=== PATIENT | female | born 1995 | race Caucasian/White ===

== ENCOUNTER 2017-01-27 10:47 | Emergency (ER) | payer BC, OTHER ==
[2017-01-27 10:59] VITALS: BP 106/60
--- NOTE | 2017-01-27 11:30 | UC ---
Throat Pain/Nasal Robert HPI - HPI Summary HPI Summary: 21 year old with sinus pressure, nasal congestion, cough, fatigue that has been present for 3 days and her fiance and son are sick with fevers and fiance with sinus infection and prescribed antibiotics . She has had some rib pain from coughing in the upper ribs / chest. She mentioned this CP to the nurse and EKG done and reveals no acute concerns. No risk factors for DVT or PE at this time. - History of Current Complaint Chief Complaint: UCRespiratory Stated Complaint: RESPIRATORY COMPLAINT Time Seen by Provider: 01/27/17 11:01 Hx Obtained From: Patient Hx Last Menstrual Period: 01/26/17 ?: No Onset/Duration: Gradual Onset Severity: Moderate Cough: Productive Associated Signs & Symptoms: Positive: Sinus Discomfort, Nasal Discharge - Allergies/Home Medications Allergies/Adverse Reactions: Allergies Allergy/AdvReac Type Severity Reaction Status Date / Time Amoxicillin Allergy Intermediate Rash Verified 01/27/17 10:59 Azithromycin [From Zithromax] AdvReac GI distress Verified 01/27/17 10:59 Home Medications: Home Medications Multiple Vitamin [Multi Vitamin] 1 tab PO DAILY 01/27/17 [History Confirmed ] PMH/Surg Hx/FS Hx/Imm Hx Previously Healthy: Yes GI/ History: Other - gastroparesis Other GI/ History: gastroparesis - Surgical History Surgical History: None - Family History Known Family History: Positive: None - Social History Alcohol Use: None Substance Use Type: None Smoking Status (MU): Never Smoked Tobacco Have You Smoked in the Last Year: No - Immunization History Most Recent Influenza Vaccination: no Vaccination Up to Date: Yes Review of Systems Constitutional: Fatigue ENT: Ear Ache, Nasal Discharge, Sinus Congestion, Sinus Pain/Tenderness Respiratory: Cough All Other Systems Reviewed And Are Negative: Yes Physical Exam Triage Information Reviewed: Yes Appearance: Well-Appearing, No Pain Distress, Well-Nourished Vital Signs: Initial Vital Signs Temp 98.1 F 01/27/17 10:54 Pulse 83 01/27/17 10:54 Resp 18 01/27/17 10:54 BP 106/60 01/27/17 10:54 Pulse Ox 100 01/27/17 10:54 Vital Signs Reviewed: Yes Eye Exam: Normal ENT Exam: Normal ENT: Positive: TM dull, Other: - maxillary sinus pressure / tenderness to palpation Dental Exam: Normal Neck exam: Normal Neck: Positive: 1 Respiratory Exam: Normal Cardiovascular Exam: Normal Abdominal Exam: Normal Musculoskeletal Exam: Normal Neurological Exam: Normal Psychological Exam: Normal Skin Exam: Normal Throat Pain/Nasal Course/Dx - Course Course Of Treatment: With constellation of Sx worsening despite use of flonase and exposure to sinus infection at home will start meds. allergy to amox (hives ) and zpack (gastroparesis) -- will prescribe doxy at this time. - Differential Dx/Diagnosis Differential Diagnosis/HQI/PQRI: Otitis Media, Pharyngitis, Sinusitis, Tonsillitis, URI Provider Diagnoses: Sinusitis Discharge - Discharge Plan Condition: Good Disposition: HOME Prescriptions: Doxycycline (Monohydrate) [Doxycycline Monohydrate] 100 mg PO BID #20 cap Patient Education Materials: Sinusitis (ED) Forms: *Work Release Referrals: Rolando Sams MD [Primary Care Provider] - 4 Days Additional Instructions: Please start claritin and flonase with nasal saline rinses to help your symptoms.
== END 2017-01-27 11:32 | disposition home or self-care (01) ==
LOC: UCCORT 10:47
DX: J32.9 Chronic sinusitis, unspecified (principal); Z88.3 Allergy status to other anti-infective agents
CPT/HCPCS: 93005; 99212; G0463

== ENCOUNTER 2017-02-21 16:17 | Emergency (ER) | payer BC ==
--- NOTE | 2017-02-21 17:32 | UC ---
Complaint Female HPI - HPI Summary HPI Summary: 21 y/o female presents to the urgent care c/o frequency and urgency on urination for the last 2 weeks. Pt states when she had her baby 1 [address] was [address] on Depo. It cased her a lot of problems, so it was removed 11/07/2016. She recently got her period about 2 weeks ago. She has been spotting on and off. She has Hx of IBS, and gastroperesis. She also feels bloated, specially on her left side of abdomen. Now she is having difficulty holding urination. Pelvic pain is 7/10 sharp at times, localized on left side, w/o any radiation. States Hx of ovarian cyst during . She has not taking anything to alleviate symptoms. She had 2 normal BM today. Pt denies fever, SOB, chest pain , blood in the stool or urine, flank pain, Hx of STD's, vaginal discharge. s - History Of Current Complaint Chief Complaint: UCAbdominalPain Stated Complaint: URINARY ISSUE Time Seen by Provider: 02/21/17 17:21 Hx Obtained From: Patient Hx Last Menstrual Period: last depo was 10/2016, could be Onset/Duration: Gradual Onset, Lasting Weeks - 2 weeks, Still Present, Worse Since - today Timing: Intermittent, Lasting Minutes Severity Initially: Mild Severity Currently: Moderate Pain Intensity: 7 Pain Scale Used: 0-10 Numeric Character: Sharp Aggravating Factor(s): Urination Alleviating Factor(s): Nothing Associated Signs And Symptoms: Negative: Fever, Back Pain, Vaginal Discharge, Nausea, Vomiting(# Of Episodes =), Genital Swelling, Genital Blisters Related Hx: - 1, Para - 1 - Risk Factors Ectopic Risk Factor: Negative Ovarian Torsion Risk Factor: Reproductive Age, Ovarian Cysts/Tumors - Allergies/Home Medications Allergies/Adverse Reactions: Allergies Allergy/AdvReac Type Severity Reaction Status Date / Time Amoxicillin Allergy Intermediate Rash Verified 01/27/17 10:59 Azithromycin [From Zithromax] AdvReac GI distress Verified 01/27/17 10:59 PMH/Surg Hx/FS Hx/Imm Hx Previously Healthy: Yes Other GI/ History: IBS, gastroperesis - Surgical History Surgical History: None - Family History Family History: Ovarian CA, Colon CA, - Social History Occupation: Unemployed Lives: With Family Alcohol Use: None Substance Use Type: None Smoking Status (MU): Never Smoked Tobacco Have You Smoked in the Last Year: No - Immunization History Most Recent Influenza Vaccination: no Vaccination Up to Date: Yes Review of Systems Constitutional: Negative Skin: Negative Eyes: Negative ENT: Negative Respiratory: Negative Cardiovascular: Negative Gastrointestinal: Other - bloating of left side of abdomen Genitourinary: Frequency, Urgency Motor: Negative Neurovascular: Negative Musculoskeletal: Negative Neurological: Negative Psychological: Negative Is Patient Immunocompromised?: No All Other Systems Reviewed And Are Negative: Yes Physical Exam Triage Information Reviewed: Yes Appearance: Well-Appearing, No Pain Distress, Well-Nourished Vital Signs: Initial Vital Signs Temp 98.6 F 02/21/17 17:10 Pulse 93 02/21/17 17:10 Resp 14 02/21/17 17:10 BP 101/68 02/21/17 17:10 Vital Signs Reviewed: Yes Eyes: Positive: Conjunctiva Clear - PERRLA, EOMI, fundi grossly normal ENT: Positive: Normal ENT inspection, Hearing grossly normal, Pharynx normal, TMs normal Neck: Positive: Supple, Nontender, No Lymphadenopathy Respiratory: Positive: Chest non-tender, Lungs clear, Normal breath sounds, No respiratory distress Cardiovascular: Positive: RRR, No Murmur, Pulses Normal, Brisk Capillary Refill Abdomen Description: Positive: Nontender, Other: - Abd: Flat with no distention. No surface trauma, scars, incisions. hyperactive bowel sounds present in all four quadrants. No tenderness, guarding, rigidity to palpation. No masses palpated, no pulsation in epigastric area. No organomegaly. Negative Fillmore signs. No periumbilical tenderness. No rebound in the lower quadrants. NT over McBurneys point. Left side suprapubic tenderness with no distension. Good femoral pulses bilaterally. No hernia noted. No CVAT bilaterraly Bowel Sounds: Positive: Present, Hyperactive Musculoskeletal: Positive: Strength Intact, ROM Intact, No Edema Neurological Exam: Normal Psychological Exam: Normal Skin Exam: Normal Complaint Female Dx - Course Course Of Treatment: 21 y/o female presents to the urgent care c/o frequency and urgency on urination for the last 2 weeks. Pt states when she had her baby 1 year ago she was place on Depo. It caused her a lot of problems, so it was removed 11/07/2016. She recently got her period about 2 weeks ago. She has been spotting on and off. She has Hx of IBS, and gastroperesis. She also feels bloated, specially on her left side of abdomen. Now she is having difficulty holding urination. Pelvic pain is 7/10 sharp at times, localized on left side, w/o any radiation. States Hx of ovarian cyst during . She has not taking anything to alleviate symptoms. She had 2 normal BM today. Pt denies fever, SOB, chest pain, blood in the stool or urine, flank pain, Hx of STD's, vaginal discharge.HX obtained. UA ordered, Result:2+blood. Pt with vaginal spotting from her period. Pregnacy test: negative. Pt with HX of ovarian cyst. At this moment no US service at the clinic. Unable to r/o any ovarian cyst or hemorrhagic cyst or pelvic etiology. I discussed Pt's case with Dr Jimenez who advised Pt should go to the ER for further images. Pt strongly advised importance of going to the ER for further evaluation and treatment. Pt understood and agreed. Yusuf agreed to take her to the [facility] by private car. Pt hemodynamically stable, A&Ox3. Pt left the clinic ambulating. - Differential Dx/Diagnosis Differential Diagnosis/HQI/PQRI: Cervicitis, Ovarian Cyst, Ovarian Torsion, Pelvic Inflammatory Disease, , Renal Colic, Sexually Transmitted Disease, Ureteral Stone, Urinary Tract Infection Provider Diagnoses: 1- Left side pelvic pain. 2- Dysuria - Physician Notifications Discussed Patient Care With: Jabier Jimenez - Dr Jimenez agreed with Pt plan of care. Discharge - Discharge Plan Condition: Stable Disposition: HOME Discharge Disposition Comment: rommel recommeded to go to the [facility] ER. Pt agreed to go by car Patient Education Materials: Pelvic Pain in Women (ED) Referrals: Rolando Sams MD [Primary Care Provider] - Additional Instructions: I strongly recommend you go to the ER for further evaluation and treatment to r/ o any hemorrhagic cyst or ovarian cyst or any other pelvic etiology. Unfortunately at this moment we don't have pelvic Ultrasound for further evaluation on your pelvic pain.
[2017-02-21 17:52] VITALS: BP 101/68
== END 2017-02-21 17:55 | disposition home or self-care (01) ==
LOC: UCCORT 16:17
DX: R10.2 Pelvic and perineal pain (principal); R30.0 Dysuria; Z32.02 Encounter for pregnancy test, result negative; K58.9 Irritable bowel syndrome, unspecified; K31.84 Gastroparesis; Z88.1 Allergy status to other antibiotic agents
CPT/HCPCS: 81003; 84702; 99212; G0463

== ENCOUNTER → 2017-04-11 21:16 | Emergency (ER) | payer SELFPAY ==
--- NOTE | 2017-04-11 21:37 | UC ---
General HPI - HPI Summary HPI Summary: Pt presents for pre-employment physical. No current complaints. 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 Imms are UTD and has provided records with her. - History of Current Complaint Stated Complaint: PRE-EMPLOYMENT PHYSICAL Time Seen by Provider: 04/11/17 21:28 Hx Obtained From: Patient Hx Last Menstrual Period: 01/26/17 - Allergy/Home Medications Allergies/Adverse Reactions: Allergies Allergy/AdvReac Type Severity Reaction Status Date / Time Amoxicillin Allergy Intermediate Rash Verified 01/27/17 10:59 Azithromycin [From Zithromax] AdvReac GI distress Verified 01/27/17 10:59 PMH/Surg Hx/FS Hx/Imm Hx Previously Healthy: Yes - Surgical History Surgical History: None - Family History Known Family History: Positive: None Family History: Ovarian CA, Colon CA, - Social History Occupation: Employed Full-time Lives: With Family Alcohol Use: None Substance Use Type: None Smoking Status (MU): Never Smoked Tobacco Have You Smoked in the Last Year: No - Immunization History Most Recent Influenza Vaccination: no Vaccination Up to Date: Yes Review of Systems Constitutional: Negative Skin: Negative Eyes: Negative ENT: Negative Respiratory: Negative Cardiovascular: Negative Gastrointestinal: Negative Genitourinary: Negative Motor: Negative Neurovascular: Negative Musculoskeletal: Negative Neurological: Negative Psychological: Negative All Other Systems Reviewed And Are Negative: Yes Physical Exam Triage Information Reviewed: Yes Appearance: Well-Appearing, Well-Nourished Vital Signs Reviewed: Yes Eyes: Positive: Conjunctiva Clear, Other: - EOMI. PERRLA.. Negative: Conjunctiva Inflamed, Discharge ENT: Positive: Normal ENT inspection, Hearing grossly normal, Pharynx normal, TMs normal, Uvula midline. Negative: Pharyngeal erythema, Nasal congestion, Nasal drainage, TM bulging, TM dull, TM red, Tonsillar swelling, Tonsillar exudate, Sinus tenderness Neck: Positive: Supple, Nontender, No Lymphadenopathy Respiratory: Positive: Chest non-tender, Lungs clear, Normal breath sounds, No respiratory distress, No accessory muscle use Cardiovascular: Positive: RRR, No Murmur, Pulses Normal Abdomen Description: Positive: Nontender, No Organomegaly, Soft. Negative: CVA Tenderness (R), CVA Tenderness (L), Distended, Guarding Bowel Sounds: Positive: Present Musculoskeletal: Positive: Strength Intact, ROM Intact, No Edema Neurological: Positive: Alert, Muscle Tone Normal, Other: - A&Ox3. 3 word recall , remote, recent memory, ability to follow 2-step directions, and attention intact. CN II XII grossly intact. Motor: good muscle tone, strength 5/5 throughout. Rapid alternating movements & [id number] are intact. Gait with normal base. Sensory: sharp and dull touch intact. Reflexes: biceps, triceps, brachioradialis, knee, and ankle +2. Babinski sign negative. Psychological: Positive: Age Appropriate Behavior Skin: Negative: rashes, significant lesion(s) Course/Dx - Course Course Of Treatment: WNL exam. Alea DICKEY. 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 There is no medical contraindication for employment. Paperwork filled out. - Differential Dx - Multi-Symptom Provider Diagnoses: Pre-employment physical Discharge - Discharge Plan Condition: Stable Disposition: HOME Referrals: Rolando Sams MD [Primary Care Provider] - Additional Instructions: If you develop a fever, SOB, chest pain, new or worsening symptoms - please call your PCP or go to the ED.
== END | disposition home or self-care (01) ==
LOC: OHCORT 21:16
DX: Z02.1 Encounter for pre-employment examination (principal)

== ENCOUNTER 2017-07-18 07:56 | Emergency (ER) | payer BC ==
[2017-07-18 08:28] VITALS: BP 111/69
--- NOTE | 2017-07-18 09:39 | UC ---
Respiratory Complaint HPI - HPI Summary HPI Summary: 21 yo female with cough for about a week no f/c laryngitis x 2 days productive cough - History of Current Complaint Chief Complaint: UCRespiratory Stated Complaint: SORE THROAT COUGH EARS Time Seen by Provider: 07/18/17 08:45 Hx Last Menstrual Period: 2 days Onset/Duration: Gradual Onset Severity Initially: Mild Severity Currently: Moderate Pain Intensity: 0 Pain Scale Used: 0-10 Numeric Character: Cough: Productive Associated Signs And Symptoms: Positive: Nasal Congestion, Sinus Discomfort Related History: Similar Episode/Dx as: - bronchitis - Allergies/Home Medications Allergies/Adverse Reactions: Allergies Allergy/AdvReac Type Severity Reaction Status Date / Time azithromycin Allergy Severe See Comment Verified 07/18/17 08:19 amoxicillin Allergy Hives Verified 07/18/17 08:18 Home Medications: Home Medications Acetaminophen [Acetaminophen Extra Strength] 500 mg PO DAILY PRN 07/18/17 [ History Confirmed 07/18/17] Multivitamin [Multivitamins] 1 each PO DAILY 07/18/17 [History Confirmed ] medroxyPROGESTERone ACETATE* [DEPO-Provera] 150 mg IM SEE INSTRUCTIONS 07/18/17 [History Confirmed 07/18/17] PMH/Surg Hx/FS Hx/Imm Hx Previously Healthy: Yes GI/ History: Gastroesophageal Reflux Other GI/ History: IBS - Surgical History Surgical History: None - Family History Known Family History: Positive: Hypertension, Diabetes Family History: Ovarian CA, Colon CA, - Social History Alcohol Use: Rare Substance Use Type: None Smoking Status (MU): Never Smoked Tobacco Have You Smoked in the Last Year: No - Immunization History Most Recent Influenza Vaccination: no Vaccination Up to Date: Yes Review of Systems Constitutional: Fatigue Skin: Negative Eyes: Negative ENT: Nasal Discharge Respiratory: Cough Cardiovascular: Negative Gastrointestinal: Negative Genitourinary: Negative Motor: Negative Neurovascular: Negative Musculoskeletal: Negative Neurological: Negative Psychological: Negative Is Patient Immunocompromised?: No All Other Systems Reviewed And Are Negative: Yes Physical Exam Triage Information Reviewed: Yes Appearance: Well-Appearing, No Pain Distress, Well-Nourished Vital Signs: Initial Vital Signs Temp 97.8 F 07/18/17 08:23 Pulse 72 07/18/17 08:23 Resp 18 07/18/17 08:23 BP 111/69 07/18/17 08:23 Pulse Ox 98 07/18/17 08:23 Eyes: Positive: Conjunctiva Clear ENT: Positive: Hearing grossly normal, Nasal congestion, TMs normal, Hoarse voice, Uvula midline. Negative: Tonsillar swelling, Tonsillar exudate Dental Exam: Normal Neck: Positive: Supple, Nontender, No Lymphadenopathy Respiratory: Positive: No respiratory distress, No accessory muscle use, Wheezing - with forced expiration Cardiovascular: Positive: RRR, No Murmur Musculoskeletal: Positive: ROM Intact, No Edema Neurological: Positive: Alert Psychological Exam: Normal Skin Exam: Normal UC Diagnostic Evaluation - Laboratory O2 Sat by Pulse Oximetry: 98 - normal/not hypoxic Respiratory Course/Dx - Differential Dx/Diagnosis Provider Diagnoses: acute bronchitis Discharge - Discharge Plan Condition: Stable Disposition: HOME Prescriptions: DOXYcycline CAP(*) [DOXYcycline 100MG CAP(*)] 100 mg PO BID #14 cap Patient Education Materials: Acute Bronchitis (ED) Forms: *Work Release Referrals: Rolando Sams MD [Primary Care Provider] - 4 Days (if not better)
== END 2017-07-18 09:06 | disposition home or self-care (01) ==
LOC: UCCORT 07:56
DX: J20.9 Acute bronchitis, unspecified (principal); Z88.1 Allergy status to other antibiotic agents; Z88.0 Allergy status to penicillin
CPT/HCPCS: 99212; G0463

== ENCOUNTER 2017-07-22 13:49 | Emergency (ER) | payer BC ==
[2017-07-22 14:12] VITALS: BP 105/66
--- NOTE | 2017-07-22 14:49 | UC ---
FLU HPI - HPI Summary HPI Summary: Pt c/o cough, nasal congestion, chills, fever, and worsening body aches. Pt was diagnosed with bronchitis on 07/18/17 and started doxycycline. Pt states she is not feeling any better. - History of Current Complaint Chief Complaint: UCRespiratory Stated Complaint: COUGH/FEVER Time Seen by Provider: 07/22/17 14:38 Hx Obtained From: Patient Hx Last Menstrual Period: last week ?: No Onset/Duration: Sudden Onset, Lasting Days, Worse Since - onset Severity Currently: Moderate Severity Initially: Mild Pain Intensity: 5 Associated Signs & Symptoms: Positive: Fever, T Max - 102, Myalgia, Cough, Nasal Congestion Related Hx: Possible Flu/Infectious Exposure - Risk Factors Influenza Risk Factors: Negative - Allergy/Home Medications Allergies/Adverse Reactions: Allergies Allergy/AdvReac Type Severity Reaction Status Date / Time azithromycin Allergy Severe See Comment Verified 07/22/17 14:08 amoxicillin Allergy Hives Verified 07/22/17 14:08 PMH/Surg Hx/FS Hx/Imm Hx Previously Healthy: Yes - Surgical History Surgical History: None - Family History Known Family History: Positive: Hypertension, Diabetes Family History: Ovarian CA, Colon CA, - Social History Occupation: Employed Full-time, Works From/At Home Lives: With Family Alcohol Use: None Substance Use Type: None Smoking Status (MU): Never Smoked Tobacco Have You Smoked in the Last Year: No - Immunization History Most Recent Influenza Vaccination: no Vaccination Up to Date: Yes Review of Systems Constitutional: Fever, Chills, Fatigue Skin: Negative Eyes: Negative ENT: Sinus Congestion Respiratory: Cough Cardiovascular: Negative Gastrointestinal: Negative Genitourinary: Negative Motor: Negative Neurovascular: Negative Musculoskeletal: Myalgia Neurological: Headache Psychological: Negative Is Patient Immunocompromised?: No All Other Systems Reviewed And Are Negative: Yes Physical Exam Triage Information Reviewed: Yes Appearance: Ill-Appearing Vital Signs: Initial Vital Signs Temp 99.1 F 07/22/17 14:05 Pulse 104 07/22/17 14:05 Resp 16 07/22/17 14:05 BP 105/66 07/22/17 14:05 Pulse Ox 100 07/22/17 14:05 Vital Signs Reviewed: Yes Eye Exam: Normal ENT Exam: Other ENT: Positive: Nasal congestion Dental Exam: Normal Neck exam: Normal Respiratory Exam: Normal Cardiovascular Exam: Normal Musculoskeletal Exam: Normal Neurological Exam: Normal Psychological Exam: Normal Skin Exam: Normal Diagnostics - Laboratory Diagnostic Studies Completed/Ordered: rapid flu: positive flu A Flu Course/Dx - Differential Dx/Diagnosis Differential Diagnosis/HQI/PQRI: Bronchitis, Influenza, Upper Respiratory Infection Provider Diagnoses: INfluenza A Discharge - Discharge Plan Condition: Stable Disposition: HOME Patient Education Materials: Influenza (ED) Forms: *Work Release Referrals: Rolando Sams MD [Primary Care Provider] - If Needed Additional Instructions: Please follow up with your PCP or return to clinic as needed.
[2017-07-22] MEDS: Acetaminophen TAB* 325 MG PO ONE (15:02)
== END 2017-07-22 15:23 | disposition home or self-care (01) ==
LOC: UCCORT 13:49
DX: J10.1 Influenza due to other identified influenza virus with other respiratory manifestations (principal); Z88.1 Allergy status to other antibiotic agents; Z88.0 Allergy status to penicillin
CPT/HCPCS: 87502; 99212; A9270-GY; G0463

== ENCOUNTER 2017-10-05 17:31 | Emergency (ER) | payer BC ==
[2017-10-05 17:52] VITALS: BP 117/75
--- NOTE | 2017-10-05 18:31 | ED ---
Throat Pain/Nasal Congestion - HPI Summary HPI Summary: 21 yr old female with the complaint of sinus pressure, post nasal drip, green sputum and coughing. She has been ill for a little over a week. She has had some light sensitivity. No neck stiffness. No other complaints. - History of Current Complaint Chief Complaint: UCGeneralIllness Time Seen by Provider: 10/05/17 18:03 - Allergies/Home Medications Allergies/Adverse Reactions: Allergies Allergy/AdvReac Type Severity Reaction Status Date / Time azithromycin Allergy Severe See Comment Verified 10/05/17 17:49 amoxicillin Allergy Hives Verified 10/05/17 17:49 PMH/Surg Hx/FS Hx/Imm Hx Endocrine/Hematology History: Denies: Hx Diabetes, Hx Thyroid Disease Respiratory History: Denies: Hx Asthma Infectious Disease History: No Infectious Disease History: Denies: Hx Clostridium Difficile, Hx Hepatitis, Hx Human Immunodeficiency Virus (HIV), Hx of Known/Suspected MRSA, Hx Shingles, Hx Tuberculosis, Hx Known/ Suspected VRE, Hx Known/Suspected VRSA, History Other Infectious Disease, Traveled Outside the in Last 30 Days - Family History Known Family History: Positive: Hypertension, Diabetes Family History: Ovarian CA, Colon CA, - Social History Alcohol Use: Occasionally Substance Use Type: Reports: None Smoking Status (MU): Never Smoked Tobacco Have You Smoked in the Last Year: No Review of Systems Positive: Sore Throat, Nasal Discharge, Other Positive: Cough Positive: Headache All Other Systems Reviewed And Are Negative: Yes Physical Exam Triage Information Reviewed: Yes Vital Signs On Initial Exam: Initial Vitals Temp Pulse Resp BP Pulse Ox 98.8 F 95 17 117/75 99 10/05/17 17:47 10/05/17 17:47 10/05/17 17:47 10/05/17 17:47 10/05/17 17:47 Vital Signs Reviewed: Yes Appearance: Positive: Well-Appearing, No Pain Distress, Well-Nourished Skin: Positive: Warm, Skin Color Reflects Adequate Perfusion Head/Face: Positive: Normal Head/Face Inspection Eyes: Positive: EOMI, KENZIE, Other: - no photophobia, light shined directly in eyes and no aversion to it. ENT: Positive: Pharynx normal, Nasal congestion, Nasal drainage, TMs normal, Sinus tenderness. Negative: Muffled voice, Hoarse voice Neck: Positive: Supple, Nontender, No Lymphadenopathy. Negative: Nuchal Rigidity Respiratory/Lung Sounds: Positive: Clear to Auscultation, Breath Sounds Present Cardiovascular: Positive: RRR. Negative: Murmur Abdomen Description: Positive: Nontender Musculoskeletal: Positive: Strength/ROM Intact Neurological: Positive: Sensory/Motor Intact, Alert, Oriented to Person Place, Time, CN Intact II-III Psychiatric: Positive: Normal - Mcdermott Coma Scale Best Eye Response: 4 - Spontaneous Best Motor Response: 6 - Obeys Commands Best Verbal Response: 5 - Oriented Coma Scale Total: 15 Diagnostics - Vital Signs Vital Signs Temp Pulse Resp BP Pulse Ox 10/05/17 17:47 98.8 F 95 17 117/75 99 - Laboratory Lab Statement: Any lab studies that have been ordered have been reviewed, and results considered in the medical decision making process. EENT Course/Dx - Course Course Of Treatment: 21 yr old female with sinusitis. Rx with doxy. - Diagnoses Provider Diagnoses: Sinusitis Discharge - Sign-Out/Discharge Documenting (check all that apply): Discharge/Admit/Transfer - Discharge Plan Condition: Good Disposition: HOME Patient Education Materials: Sinusitis (ED) Referrals: Rolando Sams MD [Primary Care Provider] - - Billing Disposition and Condition Condition: GOOD Disposition: HOME
== END 2017-10-05 18:51 | disposition home or self-care (01) ==
LOC: UCCORT 17:31
DX: J32.9 Chronic sinusitis, unspecified (principal); Z88.0 Allergy status to penicillin; Z88.1 Allergy status to other antibiotic agents
CPT/HCPCS: 84702; 99212; G0463

== ENCOUNTER 2018-08-17 21:40 | Emergency (ER) | payer BC ==
[2018-08-17 21:58] VITALS: BP 115/82
[2018-08-17] MEDS ORDERED: Ondansetron ODT TAB* 4 MG PO ONE (21:59)
[2018-08-17] MEDS ORDERED: Cyclobenzaprine TAB* 10 MG PO ONE (22:00)
--- NOTE | 2018-08-17 22:02 | UC ---
Back Pain HPI - HPI Summary HPI Summary: 22-year-old woman comes in with a chief complaint of low back pain. She's had low back pain for about a month. It comes and goes. It's in the lower back radiates down into both buttocks. It's worse with twisting turning and bending. No weakness or numbness. Today she had multiple episodes of vomiting. She's not sure why she vomited. She last vomited about an hour ago. No abdominal pain at present. She does have a history of gastroparesis and IBS. No fevers. For about a year now she's been having increased urinary frequency where she has difficulty holding her urine once she needs to go. Says her urine has a funny smell to it. She denies any concern of . No difficulty controlling stool. They increased urinary urgency and frequency started before the back pain. - History of Current Complaint Stated Complaint: LOW BACK PAIN Time Seen by Provider: 08/17/18 21:46 Hx Last Menstrual Period: 09/06/17 - Allergies/Home Medications Allergies/Adverse Reactions: Allergies Allergy/AdvReac Type Severity Reaction Status Date / Time azithromycin Allergy Severe See Comment Verified 08/17/18 21:58 amoxicillin Allergy Hives Verified 08/17/18 21:58 PMH/Surg Hx/FS Hx/Imm Hx Previously Healthy: Yes Other GI/ History: IBS,GASTROPARESIS - Surgical History Surgical History: None - Family History Known Family History: Positive: Hypertension, Diabetes Family History: Ovarian CA, Colon CA, - Social History Alcohol Use: Occasionally Substance Use Type: None Smoking Status (MU): Never Smoked Tobacco Have You Smoked in the Last Year: No - Immunization History Most Recent Influenza Vaccination: no Vaccination Up to Date: Yes Review of Systems All Other Systems Reviewed And Are Negative: Yes Constitutional: Positive: Negative Skin: Positive: Negative Eyes: Positive: Negative ENT: Positive: Negative Respiratory: Positive: Negative Cardiovascular: Positive: Negative Gastrointestinal: Positive: Vomiting, Nausea Genitourinary: Positive: Frequency, Urgency Motor: Positive: Negative Neurovascular: Positive: Negative Musculoskeletal: Positive: Other: - SEE HPI Neurological: Positive: Negative Psychological: Positive: Negative Is Patient Immunocompromised?: No Physical Exam Triage Information Reviewed: Yes Appearance: Well-Appearing, No Pain Distress, Well-Nourished Vital Signs Reviewed: Yes Eye Exam: Normal Eyes: Positive: Conjunctiva Clear ENT: Positive: Pharynx normal Neck: Positive: Supple Respiratory: Positive: Lungs clear, Normal breath sounds, No respiratory distress Cardiovascular: Positive: RRR Abdomen Description: Positive: Nontender, Soft. Negative: CVA Tenderness (R), CVA Tenderness (L) Bowel Sounds: Positive: Present Musculoskeletal: Positive: Other: - Tender to palpation in the lower lumbar spine and the paraspinous muscles on the left and right of the lower lumbar spine. Also tender into the buttocks bilaterally. Legs a full range of motion full-strength. No sensation deficits. Back pain is worse with right hip and left hip flexion. Neurological Exam: Normal Neurological: Positive: Alert, Muscle Tone Normal Psychological Exam: Normal Psychological: Positive: Age Appropriate Behavior Skin Exam: Normal Back Pain Course/Dx - Course Course Of Treatment: Patient's back pain appears to be musculoskeletal in nature. Started palpation it's worse with twisting turning bending the pain radiates down through the buttocks and legs. The pain in the back it's worse with hip flexion. There is no focal neurologic deficit. The difficulty holding her urine started a year ago prior to the beginning of her back pain one month ago. At this time by history and physical examination I do not suspect cauda equina. Patient has no abdominal pain associated with her vomiting. we are treating her with Zofran. For the back pain may recommended taking ibuprofen and then Flexeril if needed. Have written prescriptions for Zofran and Flexeril. Also esequiel blood work CBC and CMP primarily to ensure normal kidney function. Patient denies concern of and declined a urine test. Urine was negative for signs of infection but did have protein ketones. We'll send the urine for culture. - Differential Dx/Diagnosis Provider Diagnosis: Low back pain, Nausea and vomiting, Urinary frequency Discharge - Sign-Out/Discharge Documenting (check all that apply): Patient Departure All imaging exams completed and their final reports reviewed: No Studies - Discharge Plan Condition: Stable Disposition: HOME Prescriptions: Cyclobenzaprine TAB* [Flexeril 10 MG TAB*] 10 mg PO TID PRN #15 tab MDD 3 PRN Reason: Pain Ondansetron ODT TAB* [Zofran 4 MG Odt TAB*] 4 mg PO Q6H PRN #10 tab.odt PRN Reason: Nausea Patient Education Materials: Acute Low Back Pain (ED), Lower Back Exercises (ED ), Acute Nausea and Vomiting (ED), Urinary Urgency and Frequency (DC) Referrals: Rolando Sams MD [Primary Care Provider] - Additional Instructions: FOLLOW UP WITH YOUR DOCTOR. GET REEVALUATED SOONER FOR ANY WORSENING OF YOUR CONDITION; DEHYDRATION, WEAKNESS, NUMBNESS, YOU FEEL ILL OR ANY QUESTIONS OR CONCERNS. - Billing Disposition and Condition Condition: STABLE Disposition: Home
[2018-08-18 12:30] LABS: ABS Basophils 0 10^3/ul (0-0.2); ABS Eosinophils 0 10^3/ul (0-0.6); ABS Lymphocytes 0.4 10^3/ul (1.0-4.8); ABS Monocytes 0.3 10^3/ul (0-0.8); ABS Neutrophils 5.8 10^3/ul (1.5-7.7); ABS Nucleated RBC 0 10^3/ul; Eosinophil % 0.1 %; Hematocrit 39 % (33-41); Hemoglobin 13.2 g/dL (12.0-16.0); Lymphocyte % 5.5 %; Mean Corpuscular HGB Conc 34 g/dL (31-36); Mean Corpuscular Hemoglobin 31 pg (27-31); Mean Corpuscular Volume 92 fL (80-97); Mean Platelet Volume 9.7 fL (7.4-10.4); Nucleated Red Blood Cells % 0; Platelet Count 196 10^3/uL (150-450); Red Blood Count 4.27 10^6 /uL (3.70-4.87); Red Cell Distribution Width 14 % (10.5-15); White Blood Count 6.5 10^3/uL (3.5-10.8)
[2018-08-18 13:09] LABS: Albumin 4.6 g/dL (3.2-5.2); Calcium 9.2 mg/dL (8.6-10.3); Total Bilirubin 2.2 mg/dL (0.2-1.0)
[2018-08-18 13:15] LABS: Albumin/Globulin Ratio 1.8 (1-3); BUN/Creatinine Ratio 28.6 (8-20); EGFR Non-African American 118.2 (>60); Globulin 2.6 g/dL (2-4); Total Protein 7.2 g/dL (6.4-8.9)
--- NOTE | 2018-08-19 07:32 | UC ---
- Progress Note Progress Note: cbc nml -CMP shows elev total bilirubin at 2.20. no direct or inderect listed. -needs to FU w/ pcp for further blood work Course/Dx - Diagnoses Provider Diagnoses: Low back pain, Nausea and vomiting, Urinary frequency Discharge - Sign-Out/Discharge Documenting (check all that apply): Post-Discharge Follow Up All imaging exams completed and their final reports reviewed: No Studies - Discharge Plan Condition: Stable Disposition: HOME Prescriptions: Cyclobenzaprine TAB* [Flexeril 10 MG TAB*] 10 mg PO TID PRN #15 tab MDD 3 PRN Reason: Pain Ondansetron ODT TAB* [Zofran 4 MG Odt TAB*] 4 mg PO Q6H PRN #10 tab.odt PRN Reason: Nausea Patient Education Materials: Acute Nausea and Vomiting (ED), Acute Low Back Pain (ED), Lower Back Exercises (ED), Urinary Urgency and Frequency (DC) Referrals: Rolando Sams MD [Primary Care Provider] - Additional Instructions: FOLLOW UP WITH YOUR DOCTOR. GET REEVALUATED SOONER FOR ANY WORSENING OF YOUR CONDITION; DEHYDRATION, WEAKNESS, NUMBNESS, YOU FEEL ILL OR ANY QUESTIONS OR CONCERNS. - Billing Disposition and Condition Condition: STABLE Disposition: Home
== END 2018-08-17 22:27 | disposition home or self-care (01) ==
LOC: UCCORT 21:40
DX: M54.5 Low back pain (principal); R11.2 Nausea with vomiting, unspecified; R35.0 Frequency of micturition; Z88.1 Allergy status to other antibiotic agents; Z88.0 Allergy status to penicillin
CPT/HCPCS: 36415; 80053; 81003; 85025; 87086; 99213; A9270-GY; G0463

== ENCOUNTER 2019-02-05 18:46 | Emergency (ER) | payer BC, OTHER ==
[2019-02-05 19:41] VITALS: BP 114/65
--- NOTE | 2019-02-05 20:05 | UC ---
- HPI Summary HPI Summary: 23 yo with 4 day history of bilateral breast tenderness and currently [address] Has been experiencing nausea. Sexually active without use of protection against . - History of Current Complaint Hx Obtained From: Patient Breast Chief Complaint: Pain, Breast Onset/Duration: Started Days Ago Timing: Constant Breast Pain Aggravating Factors: Palpation, Pressure Breast Pain Alleviating Factors: Nothing Breast Associated Signs/Symptoms: Negative - Allergy/Home Medications Allergies/Adverse Reactions: Allergies Allergy/AdvReac Type Severity Reaction Status Date / Time azithromycin Allergy Severe See Comment Verified 02/05/19 19:33 amoxicillin Allergy Hives Verified 02/05/19 19:33 Home Medications: Home Medications NK [No Home Medications Reported] 02/05/19 [History Confirmed 02/05/19] PMH/Surg Hx/FS Hx/Imm Hx Previously Healthy: Yes - Surgical History Surgical History: None - Family History Known Family History: Positive: Hypertension, Diabetes Family History: Ovarian CA, Colon CA, - Social History Lives: With Family Alcohol Use: None Substance Use Type: None Smoking Status (MU): Never Smoked Tobacco Have You Smoked in the Last Year: No - Immunization History Most Recent Influenza Vaccination: no Vaccination Up to Date: Yes Review of Systems All Other Systems Reviewed And Are Negative: Yes Constitutional: Positive: Negative Gastrointestinal: Positive: Nausea Neurological: Negative: Headache Is Patient Immunocompromised?: No Physical Exam Triage Information Reviewed: Yes Appearance: Well-Appearing, Thin Vital Signs: Initial Vital Signs Temp 97.4 F 02/05/19 19:34 Pulse 74 02/05/19 19:34 Resp 16 02/05/19 19:34 BP 114/65 02/05/19 19:34 Pulse Ox 100 02/05/19 19:34 ENT: Positive: Pharynx normal Neck: Positive: Supple, Nontender, No Lymphadenopathy Respiratory: Positive: Lungs clear, Normal breath sounds Cardiovascular: Positive: RRR, No Murmur Skin Exam: Other - Breasts with diffuse tenderness, normal areola, diffuse density, no masses NO axillary nodes. Diagnostics - Laboratory Lab Results: U-HCG negative. Breast Pain Course/Dx - Course Course Of Treatment: await serum HCG. - Differential Diagnoses Differential Diagnosis/HQI/PQRI: Fibrocystic Breast Disease, Mastitis, - Diagnoses Provider Diagnoses: Breast pain in female Discharge ED - Sign-Out/Discharge Documenting (check all that apply): Patient Departure All imaging exams completed and their final reports reviewed: No Studies - Discharge Plan Condition: Stable Disposition: HOME Patient Education Materials: Acute Nausea and Vomiting (ED) Referrals: Rolando Sams MD [Primary Care Provider] - Additional Instructions: Urine result is negative, and the results of the blood test will be available tomorrow afternoon. You can call for a report if you have not received a phone call by noon. - Billing Disposition and Condition Condition: STABLE Disposition: Home
== END 2019-02-05 20:35 | disposition home or self-care (01) ==
LOC: UCCORT 18:46
DX: N64.4 Mastodynia (principal); R11.0 Nausea; Z88.1 Allergy status to other antibiotic agents; Z88.0 Allergy status to penicillin
CPT/HCPCS: 36415; 84702; 99211; G0463

== ENCOUNTER 2019-05-07 16:37 | Emergency (ER) | payer BC ==
--- OUTSIDE RECORDS SUMMARY | 2019-05-07 16:45 | XMS REPORT | Continuity of Care Document ---
:1995 External Reference #:[id number] Author Name PIETRO Spencer Address [address] [place] [address] Care Team Providers Name Role Phone Olegario Storey MD - Internal Care Team Information [employer] Ground Operations Supervisor [phone] Medicine Staci Gallegos PA - Physician Trick Rodeo Rider Care Team Information [employer] Operations Supervisor [phone] Problems Active Problems Provider Date Irritable bowel syndrome Onset: 03/22/2011 Anxiety state Onset: 03/22/2011 Social History Type Date Description Comments Sex Unknown ETOH Use rare etoh consumption Tobacco Use Start: Unknown Patient has never smoked Recreational Drug Use Denies Drug Use Smoking Status Reviewed: 11/08/18 Patient has never smoked Exercise Type/Frequency Exercises regularly Allergies, Adverse Reactions, Alerts Active Allergies Reaction Severity Comments Date Amoxicillin hives 05/19/2018 Medications Description No Active Medications Immunizations CPT Code Status Date Vaccine Lot # [id number] Given 03/15/2012 Influenza Virus 3Yrs & Over 83450 Given 03/01/2011 Influenza Virus 3Yrs & Over 13141 Given 01/01/2008 Gardasil (HPV) 80795 Given 08/11/2007 Gardasil (HPV) 58924 Given 01/09/2007 Varicella (Chicken Pox) Immunization 36154 Given 01/09/2007 Tdap - Tetanus/Diptheria/Acellular Pertussis 01977 Given 01/09/2007 Gardasil (HPV) 06250 Given 04/10/2001 Hep B Pediatric/Adolescent 34670 Given 10/25/2000 Poliovirus Vaccine OPV Live Oral Use 41262 Given 10/25/2000 Measles Mumps And Rubella MMR 70992 Given 10/25/2000 DTaP Vaccine Younger Than 7 78929 Given 10/25/2000 DTaP Vaccine Younger Than 7 59962 Given 07/25/1997 Hib PRP-T Conjugate 4 Dose Schedule 84228 Given 07/25/1997 DTaP Vaccine Younger Than 7 67463 Given 04/22/1997 Measles Mumps And Rubella MMR 51412 Given 05/28/1996 Poliovirus Vaccine OPV Live Oral Use 05215 Given 05/28/1996 DTaP Vaccine Younger Than 7 92161 Given 05/28/1996 Hib PRP-T Conjugate 4 Dose Schedule 67447 Given 05/16/1996 Hep B Pediatric/Adolescent 69720 Given 03/12/1996 Poliovirus Vaccine OPV Live Oral Use 77534 Given 03/12/1996 DTaP Vaccine Younger Than 7 34106 Given 03/12/1996 Hib PRP-T Conjugate 4 Dose Schedule 05063 Given 01/12/1996 Poliovirus Vaccine OPV Live Oral Use 61678 Given 01/12/1996 DTaP Vaccine Younger Than 7 24550 Given 01/12/1996 Hib PRP-T Conjugate 4 Dose Schedule 42307 Given 1995 Hep B Pediatric/Adolescent Vital Signs Date Vital Result Comment 04/30/2019 6:03pm Heart Rate 76 /min BP Systolic Sitting 108 mmHg BP Diastolic Sitting 70 mmHg Respiratory Rate 16 /min Body Temperature 98.8 F O2 % BldC Oximetry 99 % room air 11/08/2018 8:06am Height 66 inches 5'6" Weight 131.44 lb BP Systolic Sitting 90 mmHg BP Diastolic Sitting 40 mmHg Respiratory Rate 12 /min Body Temperature 98.8 F BMI (Body Mass Index) 21.2 kg/m2 Results Test Acquired Date Facility Test Result H/L Range Note Laboratory test 04/30/2019 [facility] Urine positive Negative finding Laboratory test 11/08/2018 Cytology SEE RESULT 1 , [address] [place], [place] [id number] [phone] 1 [id number] 2 SEE RESULT BELOW Name: AGUILA PATTERSON : [address]: Staci WESTBROOK Acct: [id number] Unit: [id number] AGE: 22 Location: [facility] Re11/08/18 SEX: F Status: REG REF SPEC: [id number] REVA: 11/08/18-[address]: Staci WESTBROOK REQ: [id number] RECD: 11/08/18247 STATUS: SOUT _ ORDERED: TP IMAGE ANALYS COMMENTS: [id number] Negative for Intraepithelial lesion or Malignancy A. Ectocervical/Endocervical Specimen Adequacy: Satisfactory of evaluation Transformation zone component not identified Patient Information: HPV: Thin Layer Pap Test w/reflex to high risk HPV RNA testing when ASCUS Actual Specimen Date: 11/08/18 Last Menstrual Date: 10/23/18 Spec Date if unknown: unknown ?: N Post Menopausal?: N Hysterectomy?: Y Previous Abnormal Pap Smears?:N Signed by and Reported on: GEMA [place](ASCP) 0258 This Pap test was evaluated with the assistance of the [employer] Test Imaging System. Due to cytologic findings at the extension forester microscope, comprehensive manual rescreening by a Fast Food Fry Cook may be required. The Pap Smear is a screening test designed to aid in the detection of premalignant and malignant conditions of the uterine cervix. It is not a diagnostic procedure and should not be used as the sole means of detecting cervical cancer. Both false- positive and false- negative reports do occur. Depending on your risk status, a Pap smear should be obtained and evaluated every 1-3 years. END OF REPORT DEPARTMENT OF PATHOLOGY, [address] [place] [address] Eze Stanton M.D. 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 Functional Status Description No Information Available Mental Status Description No Information Available Referrals Description No Information Available
[2019-05-07 16:47] VITALS: BP 102/62
--- NOTE | 2019-05-07 17:16 | ED ---
Back Pain - HPI Summary HPI Summary: 23 yr old female with the complaint of right upper back pain. Onset of her pain was May 05, when she put her 3 yr old in his car seat in the car. She over reached, and felt a pull and pain in the area between the right scapula and the t spine area. Her pain is worse with lifting her right arm over her head, and it is worse with touching the area. Her pain is moderate. She is 4 weeks . She has no SOB, and no pain with breathing. - History of Current Complaint Chief Complaint: UCBackPain Stated Complaint: RT SIDE MID BACK PAIN Time Seen by Provider: 05/07/19 16:58 Hx Last Menstrual Period: 12/28/18-01/01/19 Pain Intensity: 8 - Allergies/Home Medications Allergies/Adverse Reactions: Allergies Allergy/AdvReac Type Severity Reaction Status Date / Time azithromycin Allergy Severe See Comment Verified 05/07/19 16:47 amoxicillin Allergy Hives Verified 05/07/19 16:47 Home Medications: Home Medications Pnv No.103/Folic/Om3s/Fish Oil [ Gummies/Dha & Fo 0.4-32.5 mg] 1 chw PO DAILY 05/07/19 [History Confirmed 05/07/19] PMH/Surg Hx/FS Hx/Imm Hx Endocrine/Hematology History: Denies: Hx Diabetes, Hx Thyroid Disease Respiratory History: Denies: Hx Asthma Infectious Disease History: No Infectious Disease History: Denies: Hx Clostridium Difficile, Hx Hepatitis, Hx Human Immunodeficiency Virus (HIV), Hx of Known/Suspected MRSA, Hx Shingles, Hx Tuberculosis, Hx Known/ Suspected VRE, Hx Known/Suspected VRSA, History Other Infectious Disease, Traveled Outside the [place] in Last 30 Days - Family History Known Family History: Positive: Hypertension, Diabetes Family History: Ovarian CA, Colon CA, - Social History Lives: With Family Alcohol Use: None Substance Use Type: Reports: None Smoking Status (MU): Never Smoked Tobacco Have You Smoked in the Last Year: No Review of Systems Constitutional: Negative Positive: Other - pain in the right medial scapula, t spine area All Other Systems Reviewed And Are Negative: Yes Physical Exam Triage Information Reviewed: Yes Vital Signs On Initial Exam: Initial Vitals Temp Pulse Resp BP Pulse Ox 98.4 F 82 15 102/62 100 05/07/19 16:43 05/07/19 16:43 05/07/19 16:43 05/07/19 16:43 05/07/19 16:43 Vital Signs Reviewed: Yes Appearance: Positive: Well-Appearing, No Pain Distress Skin: Positive: Warm, Skin Color Reflects Adequate Perfusion Head/Face: Positive: Normal Head/Face Inspection Eyes: Positive: EOMI, KENZIE ENT: Positive: Normal ENT inspection Neck: Positive: Nontender Respiratory/Lung Sounds: Positive: Clear to Auscultation, Breath Sounds Present Cardiovascular: Positive: RRR. Negative: Murmur Abdomen Description: Negative: Distended Musculoskeletal: Positive: Strength/ROM Intact - tenderness over the right rhomboid muscle along length from medial scapula to the t spine.. Negative: Edema Left, Edema Right Neurological: Positive: Sensory/Motor Intact, Alert, Oriented to Person Place, Time, CN Intact II-III, Normal Gait, Speech Normal Psychiatric: Positive: Normal Diagnostics - Vital Signs Vital Signs Temp Pulse Resp BP Pulse Ox 05/07/19 16:43 98.4 F 82 15 102/62 100 - Laboratory Lab Statement: Any lab studies that have been ordered have been reviewed, and results considered in the medical decision making process. Back Pain Course/Dx - Course Course Of Treatment: 23 yr old with rhomboid muscle strain. Dc home. Tylenol. FUw ith PMD> - Diagnoses Provider Diagnoses: Strain of rhomboid muscle Discharge ED - Sign-Out/Discharge Documenting (check all that apply): Patient Departure All imaging exams completed and their final reports reviewed: No Studies - Discharge Plan Condition: Good Disposition: HOME Patient Education Materials: Muscle Strain (ED) Referrals: Staci Gallegos PA [Primary Care Provider] - 2 Days - Billing Disposition and Condition Condition: GOOD Disposition: Home
== END 2019-05-07 17:15 | disposition home or self-care (01) ==
LOC: UCCORT 16:37
DX: S29.012A Strain of muscle and tendon of back wall of thorax, initial encounter (principal); X50.9XXA Other and unspecified overexertion or strenuous movements or postures, initial encounter; Y92.9 Unspecified place or not applicable
CPT/HCPCS: 99211; G0463